=== PATIENT | male | born 1995 | race Caucasian/White ===

== ENCOUNTER 2018-03-25 19:42 | Emergency (ER) | payer OTHER ==
[2018-03-25] MEDS ORDERED: NS 1,000 ML IV ONE (20:15)
--- NOTE | 2018-03-25 20:17 | EDPHY ---
H & P Stated Complaint: pt c/o facial numbness/dizziness approx 30 mins [employer] Time Seen by Provider: 03/25/18 20:08 HPI/ROS: CHIEF COMPLAINT: Facial numbness HISTORY OF PRESENT ILLNESS: Patient is a 22-year-old healthy man who was sitting watching a movie when he developed some numbness in his upper lips and cheeks on both sides. When he looked in the mirror he felt like his smile was slightly crooked and his girlfriend agrees that the right side of his mouth looked like it had been numbed by the dentist. This began at 7:30 p.m.. He denies chest pain or shortness of breath. They came immediately here. The drooping has stopped but he still has numbness on both sides of his upper lips and cheeks. Triage nurse states that she did notice some hesitation with the right-sided his mouth when he smiled her. It is now normal. REVIEW OF SYSTEMS: Constitutional: denies: chills, fever, recent illness, recent injury EENTM: denies: blurred vision, double vision, nose congestion Respiratory: denies: cough, shortness of breath Cardiac: denies: chest pain, irregular heart rate, lightheadedness, palpitations Gastrointestinal/Abdominal: denies: abdominal pain, diarrhea, nausea, vomiting, blood streaked stools Genitourinary: denies: dysuria, frequency, hematuria, pain Musculoskeletal: denies: joint pain, muscle pain Skin: denies: lesions, rash, jaundice, bruising Neurological: denies: headache, numbness, paresthesia, tingling, dizziness, weakness Hematologic/Lymphatic: denies: blood clots, easy bleeding, easy bruising Immunologic/allergic: denies: HIV/AIDS, transplant EXAM: GENERAL: Well-appearing, well-nourished and in no acute distress. HEAD: Atraumatic, normocephalic. EYES: Pupils equal round and reactive to light, extraocular movements intact, sclera anicteric, conjunctiva are normal. ENT: TMs normal, nares patent, oropharynx clear without exudates. Moist mucous membranes. NECK: Normal range of motion, supple without lymphadenopathy or JVD. LUNGS: Breath sounds clear to auscultation bilaterally and equal. No wheezes rales or rhonchi. HEART: Regular rate and rhythm without murmurs, rubs or gallops. ABDOMEN: Soft, nontender, normoactive bowel sounds. No guarding, no rebound. No masses appreciated. BACK: No CVA tenderness, no spinal tenderness, step-offs or deformities EXTREMITIES: Normal range of motion, no pitting or edema. No clubbing or cyanosis. NEUROLOGICAL: Cranial nerves II through XII grossly intact. Normal speech, normal gait. 5/5 strength, normal movement in all extremities, normal sensation , normal cerebellar testing, no pronator drift, normal speech, NIH stroke score 0 PSYCH: Normal mood, normal affect. SKIN: Warm, dry, normal turgor, no visible rashes or lesions. Source: Patient Exam Limitations: No limitations - Medical/Surgical History Hx Asthma: No Hx Chronic Respiratory Disease: No Hx Diabetes: No Hx Cardiac Disease: No Hx Renal Disease: No Hx Cirrhosis: No Hx Alcoholism: No Hx HIV/AIDS: No Hx Splenectomy or Spleen Trauma: No Other PMH: BACK STRAIN, gerd - Family History Significant Family History: No pertinent family hx - Social History Smoking Status: Never smoked Alcohol Use: Sober Drug Use: None Constitutional: Initial Vital Signs Temperature (C) 37.4 C 03/25/18 19:57 Heart Rate 116 H 03/25/18 19:57 Respiratory Rate 18 03/25/18 19:57 Blood Pressure 149/81 H 03/25/18 19:57 O2 Sat (%) 97 03/25/18 19:57 O2 Delivery Mode Room Air Allergies/Adverse Reactions: No Known Allergies Allergy (Verified 03/25/18 20:00) Home Medications: Medication Instructions Recorded Nsaid 10/04/16 Medical Decision Making - Diagnostics EKG Interpretation: An EKG obtained and was read and documented in trace view. Please see trace view for full reading and report. Sinus rhythm, no acute ischemic changes Imaging: Discussed imaging studies w/ hospice fellow Radiologist ED Course/Re-evaluation: 9:00 p.m. the patient continues to have some tingling to his upper limbs bilaterally. He states that it is very minimal. Again he has no deficits on exam. His lab work and imaging thus far is reassuring. 10:00 p.m. We discussed his angio results. This patient has no clinical deficits on exam. He has a sensation of paresthesia in his cheeks bilaterally that does not appear consistent with a stroke. He understands we cannot rule out TIA based on his history of crooked smile earlier. This point he is eager to go home and declines further workup or testing. His girlfriend is with him and agrees. We discussed indications for returning. Differential Diagnosis: Partial list of the Differential diagnosis considered include but were not limited to; TIA, anxiety, paresthesias, rash and although unlikely based on the history and physical exam, I also considered dental infection, trigeminal neuralgia, Hawkins's palsy. - Data Points Laboratory Results: Laboratory Results 03/25/18 20:10 03/25/18 20:10 Medications Given: Discontinued Medications Aspirin (Aspirin) 324 mg PO EDNOW ONE Stop: 03/25/18 21:35 Last Admin: 03/25/18 21:40 Dose: 324 mg Sodium Chloride (Ns) 1,000 mls @ 500 mls/hr IV EDNOW ONE PRN Reason: Protocol Stop: 03/25/18 22:14 Last Admin: 03/25/18 20:21 Dose: 1,000 mls Departure - Departure Disposition: Home, Routine, Self-Care Clinical Impression: Paresthesia Condition: Fair Instructions: Paresthesia (ED) Additional Instructions: Began taking aspirin daily as discussed until you follow up with your primary. Referrals: NONE *PRIMARY CARE P,. [Primary Care Provider] - As per Instructions Liu Montenegro MD [[facility] [place] Primary Care Provider] - As per Instructions
[2018-03-25 20:24] LABS: PLATELET COUNT 309 10^3/uL (150-400)
[2018-03-25 20:31] LABS: INR 1.03 (0.83-1.16); PROTIME(PATIENT) 13.7 SEC (12.0-15.0)
--- NOTE | 2018-03-25 20:32 | CPEKG ---
Heart Rate: 92 RR Interval: 652 P-R Interval: 164 QRSD Interval: 90 QT Interval: 364 QTC Interval: 451 P [place]: 61 QRS [place]: 62 T Wave [place]: 33 EKG Severity - BORDERLINE ECG - EKG Impression: SINUS RHYTHM EKG Impression: INFERIOR Q WAVES, PROBABLY NORMAL VARIATION Electronically Signed By: Jose Francisco Pizano 25-Mar-2018 20:41:08
[2018-03-25] MEDS ORDERED: IOPAMIDOL (ISOVUE 370) 100 ML BTL IV ONE (20:46)
[2018-03-25] MEDS ORDERED: ASPIRIN 81 MG CHEWABLE TAB PO ONE (21:34)
[2018-03-25 21:42] VITALS: BP 136/81
== END 2018-03-25 21:51 | disposition home or self-care (01) ==
DX: R20.2 Paresthesia of skin (principal); E86.9 Volume depletion, unspecified
CPT/HCPCS: Q9967